=== PATIENT | female | born 1990 | race Caucasian/White ===

== ENCOUNTER 2017-10-14 11:38 | Inpatient (IN) | payer OTHER ==
[2017-10-20] MEDS ORDERED: PITOCIN IVP ONE (12:17)
[2017-10-20] MEDS ORDERED: PHENERGAN INJ 25 MG IV PRN ×3 (12:17→19:18)
[2017-10-20] MEDS ORDERED: MORPHINE SULFATE INJ 2 MG INJ IVP PRN (12:17)
[2017-10-20] MEDS ORDERED: NUBAIN INJ 200 MG VIAL MULTIDOSE IVP PRN (12:17)
[2017-10-20] MEDS ORDERED: D5LR 1L W PITOCIN 10 UNITS/L 10 UNITS/1,000 ML BAG IV PRN (12:17)
[2017-10-20] MEDS ORDERED: D5 1/2 NS 1000 ML 1,000 ML IV SCH (12:17)
[2017-10-20] MEDS ORDERED: REGLAN INJ 10 MG VIAL IVP PRN ×3 (12:17→19:18)
[2017-10-20] MEDS ORDERED: FENTANYL INJ 100 mcg EPI ONE (13:15)
[2017-10-20] MEDS ORDERED: LR 1000 ML IV 1,000 ML IV ONE ×3 (13:15→18:05)
[2017-10-20] MEDS ORDERED: NAROPIN EPIDURAL 0.2% 60 ML with FENTANYL INJ 100 mcg 90 MCG IVP SCH ×2 (13:15)
[2017-10-20] MEDS ORDERED: PITOCIN ONE (13:16)
[2017-10-20] MEDS ORDERED: NAROPIN EPIDURAL 0.2% + FENTANYL 90MCG 60 ML EPI ONE (13:16)
[2017-10-20] MEDS ORDERED: FENTANYL INJ 100 mcg ONE (13:17)
--- NOTE | 2017-10-20 13:35 | DR.OB ---
OB Quick Note - Assessment/Plan Assessment/Plan: L&D 10/20/17 at 11:55am S-No complaint. O-Afebrile,VSS ITG=793 with good LTV, +accel, no decel. CTX=mild/irreg. CVX=3cm/50%/-1/VTX Small forebag noted. ROM with clear fluid. IUPC and FSE placed. A-IUP at 39 1/7 weeks with SROM Rh- Multiparity P-Begin pitocin augmentation F/U labs Anticipate with PP BTL as desired.
[2017-10-20] MEDS ORDERED: EPHEDRINE SULFATE INJ ONE (13:54)
[2017-10-20] MEDS: D5 1/2 NS 1L W PITOCIN 20 UNITS/L 20 UNITS/1,000 ML BAG IV ONE ×2 (14:40→18:09)
[2017-10-20] MEDS ORDERED: ANCEF 1 GM IV PREMIX* 1 GM/50 ML BAG IV ONE (16:12)
--- NOTE | 2017-10-20 16:51 | DR.OB ---
OB Quick Note - Assessment/Plan Assessment/Plan: L&D 10/20/17 at 4:45pm Pitocin=18mu/min. S-No complaint. O-Afebrile,VSS DOY=670 with good LTV, +accel, no decel. CTX=q 1 1/2 min., about 35-60mmHg CVX=9cm/100%/-1 A-IUP at 39 1/7 weeks in labor Rh- Multiparity P-Cont. pitocin augmentation Anticipate
--- NOTE | 2017-10-20 18:05 | DR.OB ---
OB Quick Note - Assessment/Plan Assessment/Plan: Delivery Note [facility]ICKER 10/20/17 at 6:00pm Patient complete and pushing. Head at +2 station and with push, VTX/ LOT. Decels noted after CTX. Vacuum applied easily and head delivered with one push. Vacuum immediately released. Nose and mouth bulb suctioned. Nuchal cord x 1 reduced. Body delivered over intact perineum. Cord clamped x 2 and cut. handed to attendant. Cord sent for gases. Placenta delivered spontaneously / intact / 3 vessel cord. No CVX tears noted. A small second degree midline tear noted and repaired with 0-vicryl in usual fashion. Viable male infant, VTX/LOT, wt=7'8" and 9/9, stable to NBN. Mother stable to RR. UXS=[id number].
[2017-10-20] MEDS ORDERED: MOTRIN TAB 800 MG PO PRN (18:06)
[2017-10-20] MEDS ORDERED: NS IRRIGATION 1000 ML 1,000 ML IR ONE (18:21)
[2017-10-20] MEDS ORDERED: DILAUDID INJ IVP PRN (18:54)
[2017-10-20] MEDS ORDERED: BENADRYL INJ 50 MG VIAL IVP PRN (18:54)
[2017-10-20] MEDS ORDERED: PHENERGAN INJ 25 MG IVP PRN (18:54)
[2017-10-20] MEDS ORDERED: ZOFRAN INJ 4 MG VIAL IVP PRN (18:54)
[2017-10-20] MEDS ORDERED: D5 1/2 NS 1000 ML 1,000 ML with PITOCIN 20 UNITS IV SCH ×2 (19:00)
[2017-10-20] MEDS ORDERED: ADACEL TDaP IM ONE (19:18)
[2017-10-20] MEDS ORDERED: AMBIEN PO PRN ×2 (19:18)
[2017-10-20] MEDS ORDERED: HYPERRHO S/D (or RHOGAM) IM PRN (19:18)
[2017-10-20] MEDS ORDERED: MILK OF MAGNESIA PO PRN ×2 (19:18)
[2017-10-20] MEDS ORDERED: DERMOPLAST SPRAY TOP PRN (19:18)
[2017-10-20] MEDS: PERCOCET TAB 5/325 MG PO PRN (22:41)
[2017-10-20] MEDS: ZANTAC PO SCH (22:41)
[2017-10-21] MEDS: MOTRIN TAB 800 MG PO PRN ×2 (00:59→11:41)
[2017-10-21] MEDS: PERCOCET TAB 5/325 MG PO PRN ×4 (02:43→21:30)
[2017-10-21 05:12] LABS: HEMATOCRIT 29.2 % (36.0-47.0); HEMOGLOBIN 9.9 g/dL (12.0-16.0)
[2017-10-21] MEDS: ZANTAC PO SCH ×2 (08:01→21:30)
[2017-10-21] MEDS: CELEXA PO SCH ×2 (08:01→09:25)
[2017-10-21] MEDS: PRENATAL PLUS PO SCH (08:01)
[2017-10-21] MEDS: FERROUS GLUCONATE PO SCH ×2 (08:05→16:10)
[2017-10-21] MEDS: D5 1/2 NS 1000 ML 1,000 ML with PITOCIN 20 UNITS IV SCH ×6 (09:25→19:17)
[2017-10-21] MEDS: BACTROBAN OINT TOP SCH ×2 (13:08→22:52)
[2017-10-21] MEDS: MYLICON TAB 80 MG CHEW PO PRN (16:11)
[2017-10-22] MEDS: PERCOCET TAB 5/325 MG PO PRN ×2 (01:37→05:41)
[2017-10-22] MEDS: D5 1/2 NS 1000 ML 1,000 ML with PITOCIN 20 UNITS IV SCH ×2 (03:45)
[2017-10-22] MEDS: MYLICON TAB 80 MG CHEW PO PRN (05:46)
[2017-10-22] MEDS: FERROUS GLUCONATE PO SCH (06:24)
[2017-10-22] MEDS: BACTROBAN OINT TOP SCH (06:24)
[2017-10-22] MEDS: ZANTAC PO SCH (08:10)
[2017-10-22] MEDS: PRENATAL PLUS PO SCH (08:10)
[2017-10-22] MEDS: CELEXA PO SCH (08:10)
[2017-10-22 08:22] VITALS: BP 101/57
[2017-10-22] MEDS: MOTRIN TAB 800 MG PO PRN (11:35)
== END 2017-10-22 12:00 | disposition home or self-care (01) | DRG 775 ==
LOC: LD 11:48 → UNDOADMIN 11:48 → LD 10-20 11:53 → MED/SURG 10-20 19:17
PROVIDERS: ADMIT Specialist; ATTEND Specialist
PROC: 0KQM0ZZ Repair Perineum Muscle, Open Approach (ICD-10-PCS; 2017-10-20)
PROC: 3E0334Z Introduction of Serum, Toxoid and Vaccine into Peripheral Vein, Percutaneous Approach (ICD-10-PCS; 2017-10-20)
PROC: 3E0234Z Introduction of Serum, Toxoid and Vaccine into Muscle, Percutaneous Approach (ICD-10-PCS; 2017-10-20)
PROC: 10D07Z6 Extraction of Products of Conception, Vacuum, Via Natural or Artificial Opening (ICD-10-PCS; principal; 2017-10-20 18:00)
DX: O99.343 Other mental disorders complicating pregnancy, third trimester (principal); Z37.0 Single live birth; O99.013 Anemia complicating pregnancy, third trimester; O36.0930 Maternal care for other rhesus isoimmunization, third trimester, not applicable or unspecified; Z30.2 Encounter for sterilization; D50.8 Other iron deficiency anemias; O70.1 Second degree perineal laceration during delivery; Z3A.39 39 weeks gestation of pregnancy; Z23 Encounter for immunization
CPT/HCPCS: 09167; 36415; 59409; 80048; 80307; 81001; 84112; 85014; 85018; 85025; 85461; 86592; 86850; 86900; 86901; A4216; A4222; S0197; G0434; J0690; J2001; J2590; J2790; J3010; J3490; J7042; J7120

== ENCOUNTER 2017-10-20 10:51 | Emergency (ER) | payer OTHER ==
[~2017-10-20 10:51] MED LIST: DIPRIVAN VIAL ONE; XYLOCAINE 2 % (PLAIN) ONE
[2017-10-20 11:28] LABS: BILIRUBIN,URINE NEGATIVE (NEGATIVE); BLOOD/HEMOGLOBIN,URINE NEGATIVE (NEGATIVE); GLUCOSE, URINE NEGATIVE (NEGATIVE); KETONES,URINE NEGATIVE (NEGATIVE); LEUKOCYTE ESTERASE ,URINE NEGATIVE (NEGATIVE); NITRITES,URINE NEGATIVE (NEGATIVE); PROTEIN,URINE NEGATIVE (NEGATIVE); UROBILINOGEN,URINE NORMAL (NORMAL)
[2017-10-20 11:30] LABS: AMNISURE ROM TEST THERE IS A RUPTURE (NO RUPTURE)
[2017-10-20 11:32] VITALS: BP 110/70; BMI 31.2
[2017-10-20] MEDS ORDERED: D5 1/2 NS 1000 ML 1,000 ML IV ONE (11:41)
[2017-10-20 11:44] LABS: BLOOD UREA NITROGEN 7 mg/dL (7-18); CALCIUM 8.6 mg/dL (8.5-10.1); CARBON DIOXIDE 26.1 mmol/L (21-32); CHLORIDE 102 mmol/L (98-107); CREATININE 0.69 mg/dL (0.55-1.02); SODIUM 136 mmol/L (136-145); eGFR BLACK RACES > 60 (>60); eGFR NON BLACK RACES > 60 (>60)
[2017-10-20 11:51] LABS: AMORPHOUS SEDIMENT,UR TRACE /HPF (NEGATIVE); APPEARANCE,URINE CLEAR (CLEAR); BACTERIA,URINE NEGATIVE /HPF (NEGATIVE); COLOR,URINE YELLOW (YELLOW); RBC,URINE NONE SEEN /HPF (NONE SEEN); SQUAMOUS EPITHELIAL CELL,UR MANY /HPF (NEGATIVE)
[2017-10-20] MEDS ORDERED: D5LR 1L W PITOCIN 10 UNITS/L 10 UNITS/1,000 ML BAG IV ONE (11:52)
[2017-10-20 11:57] LABS: BASOPHILS % (AUTO) 0.4 % (0.2-1.0); EOSINOPHILS % (AUTO) 0.3 % (0.9-2.9); HEMATOCRIT 33.4 % (36.0-47.0); HEMOGLOBIN 11.4 g/dL (12.0-16.0); LYMPHOCYTES # (AUTO) 2.3 X10^3/uL (1.3-2.9); LYMPHOCYTES % (AUTO) 23.9 % (21.0-51.0); MEAN CORPUSCULAR HEMOGLOBIN 27.4 pg (27.0-34.0); MEAN CORPUSCULAR HGB CONC 34.3 g/dL (33.0-35.0); MEAN CORPUSCULAR VOLUME 80.1 fL (80.0-100.0); MEAN PLATELET VOLUME 8.1 fL (7.4-11.0); MONOCYTES # (AUTO) 0.8 x10^3/uL (0.3-0.8); MONOCYTES % (AUTO) 7.8 % (0.0-13.0); NEUTROPHILS # (AUTO) 6.6 x10^3/uL (2.2-4.8); NEUTROPHILS % (AUTO) 67.6 % (42.0-75.0); PLATELET COUNT 274 X10^3/uL (150.0-450.0); RED BLOOD COUNT 4.17 X10^6/uL (3.5-5.4); RED CELL DISTRIBUTION WIDTH 14.6 % (11.6-16.5); WHITE BLOOD COUNT 9.8 X10^3/uL (3.6-10.0)
[2017-10-20] MEDS ORDERED: XYLOCAINE 2% and EPINEPHRINE 1:100,000 ONE (12:34)
== END 2017-10-20 12:06 | disposition other institution (70) ==
LOC: ER 10:51
DX: O88.119 Amniotic fluid embolism in pregnancy, unspecified trimester (principal); Z3A.39 39 weeks gestation of pregnancy
CPT/HCPCS: 09167; 36415; 59409; 80048; 80307; 81001; 84112; 85025; 86592; 86850; 86900; 86901; A4222; G0434; J2001; J3490; J7042